=== PATIENT | female | born 1950 | race Caucasian/White ===

== ENCOUNTER → 2024-04-05 | Outpatient (CLI) | payer MEDICARE, SELFPAY ==
--- NOTE | 2024-04-05 | IMM_PTH ---
PATIENT: KEMI NOE LOC: [facility] U#:[id number] AGE/SX: 73/F ROOM: RE04/05/[address]: Dr. Ericka العلي MD : 1950 BED: DIS: 04/05/2024 SPEC #: [id number] RECD: 04/06/24 11:54 STATUS: SYEDA REQ #: [id number] PAWAN: 04/05/24 00:[address]: Ericka العلي DEPT: IMMUNOHISTOCHEMISTRY RECD BY: Rahat Lisa ENTERED: 04/06/24 11:55 SP TYPE: IMMUNO OTHR DR: DHRUV Rose Tissues: Right breast, NOS Procedures: P53 (initial) CALPONIN-1 (add) CK5-6 (add) CK8 (add) E-CAD (add) HER2 MIGUELITO (add) KI-67 (add) WV (add) FACTOR VIII (add) P40 (add) MOC-31 (add) ER (initial) PHYSICIAN & INSTITUTION [address] [address] SPECIMEN INFORMATION: Tissue Source: Right breast tissue Clinical Info: Right breast nodule Specimen Number: [id number] CPT code: 07795,01096m4,82542v5 METHODOLOGY: Deparaffinized sections of prefer/formalin-fixed tissue or PAP/DQ stained slides are incubated with monoclonal/polyclonal antibodies/oligonucleotide probes. Localization is made via biotin free immunoperoxidase method. Appropriate controls are performed and reacted as expected. Results on target cell population are indicated in the following table: RESULTS: ANTIBODY / CLONE RESULT P53 (DO-7) positive, missense type Ki-67 (30-9) positive, 35% CK8 (65msetT85) positive CK5-6 (D5 & 1684) negative Calponin-1 (EO251M) negative P40 (BC28) negative E-Cad (ECH-6) positive MOC-31 (4561) positive Factor VIII (R Ag) negative MORPHOMETRIC ANALYSIS ER (clone 6F11) >95%, strong intensity WV (clone 16/1E2) 45%, weak to moderate intensity Her-2Neu (clone CB11) 0 The prognostic test for HER2 is performed on formalin-fixed paraffin embedded tissue. A 3+ (positive) staining pattern is defined as intense, homogeneous, complete, circumferential membranous staining in >10% of contiguous tumor cells. A similar weak (2+) staining pattern is interpreted as equivocal. ELVIRA follow-up testing is recommended for all equivocal cases. Positivity/negativity for ER/WV is reported if > or < 1% of the tumor cells are immuno- reactive, respectively. The ASCO/CAP criteria is used for scoring. Reference: Journal of Clinical Oncology, 2013; 31:9700-3984 & 2010; 16:8048-8618. Ischemic time: Less than one hour. Duration of fixation: 12 Hrs; Sample Adequate: Yes. These assays have not been validated on decalcified tissues. Results should be interpreted with caution given the likelihood of false negativity on decalcified specimens or fixation greater than 72 hours. Alternative testing methods (FISH/dualISH for Her2; gene expression for ER) are recommended, if applicable. Please notify the laboratory if additional testing is required. These tests were developed and their performance characteristics determined by [facility]. They may not have been cleared or approved by the U.S. Food and Drug Administration. The FDA has determined that such clearance or approval is not necessary. The above immunohistochemical/dualISH markers are ordered and reviewed by the Pathologist. INTERPRETATION: Right breast tissue, 9o'clock, 12 cm from nipple, core biopsy: Invasive ductal carcinoma, provisional grade 1. Positive for estrogen receptors (favorable prognostic indicator). Positive for progesterone receptors (favorable prognostic indicator). Negative for overexpression of AWT1yxr. AM.mr 04/07/2024
--- NOTE | 2024-04-05 08:15 | BRBX_PTH ---
PATIENT: KEMI [facility]E [facility] U#:[id number] AGE/SX: 73/F ROOM: RE04/05/[address]: Dr. Ericka العلي MD : 1950 BED: DIS: 04/05/2024 SPEC #: [id number] RECD: 04/05/24 10:05 STATUS: SYEDA BIPIN #: [id number] PAWAN: 04/05/24 08:[address]: Ericka العلي DEPT: SURGICAL PATHOLOGY RECD BY: Ann-Marie Barrios ENTERED: 04/05/24 10:25 SP TYPE: BREAST BX OTHR DR: DHRUV Rose Tissues: Right breast, NOS Procedures: Surgery Specimen Level IV HEADER OPERATION: Right breast biopsy PRE-OP DIAGNOSIS: Right breast nodule biopsy TISSUE SUBMITTED: Right breast tissue, 9o'clock, 12cm from nipple Ischemic Time: 1 minute Fixation Time: 12 hours MICROSCOPIC DIAGNOSIS Right breast nodule, core biopsy: Invasive ductal carcinoma. See synoptic report below. 04/06/2024 COMMENT INVASIVE BREAST CANCER SUMMARY: Procedure: Needle core biopsy Specimen Laterality: Right breast Histologic type: Invasive ductal carcinoma Provisional Histologic grade:1/3 Tubule Differentiation Score: 2 Nuclear Pleomorphism Score: 2 Mitotic Rate Score: 1 Tumor Size ( greatest dimension): 11.5mm Ductal Carcinoma In situ: Not identified Angiolymphatic Invasion: Not identified Microcalcifications: Not identified Additional Findings: Fibrosis and mild chronic inflammation Breast Marker Study: [id number] ER: positive (95%, strong intensity) TN: positive (45% weak to moderate intensity) Her2: negative (0) Ki67:35% [id number]: Not applicable The above summary is in compliance with [employer] [place] [employer] (CAP) Cancer Protocols Checklist and [place] Joint Committee on Cancer (AJCC), Staging Manual, 8th Ed. Immunohistochemistry ([id number]) supports the above diagnosis. MICROSCOPIC DESCRIPTION Slides are reviewed. GROSS DESCRIPTION Received in fixative is one container labeled with the patient's name and designated Right breast nodule. The specimen consists of two cores of light ogden soft tissue. Each core has an average length of 1.5cm and a maximal diameter of 0.2cm. The specimen is submitted in its entirety in one cassette. 04/05/2024 TC:0 CPT:57677
== END | disposition home or self-care (01) ==
LOC: LABSPEC 10:15
PROVIDERS: PCP Physician Assistant; Referring Provider Surgery; Visit Provider Surgery
DX: C50.811 Malignant neoplasm of overlapping sites of right female breast (principal); Z17.0 Estrogen receptor positive status [ER+]
CPT/HCPCS: 81002; 88305; 88341; 88342

== ENCOUNTER → 2024-04-10 | Outpatient (CLI) | payer MEDICARE, OTHER, SELFPAY ==
--- NOTE | 2024-04-10 12:45 | MRI_ITS ---
STUDY: BILATERAL BREAST MR WITHOUT AND WITH CONTRAST REASON FOR EXAM: Female, 73 years old. Right breast lump. TECHNIQUE: Multi-sequence multi-echo imaging of both breasts was performed with a dedicated breast coil. T1-weighted and T2-weighted images were performed before the administration of contrast. T1-weighted images were also performed after the intravenous administration of 20 cc of Clariscan contrast. COMPARISON: Right breast ultrasound and dated May 01, 2024 and ultrasound-guided biopsy images dated April 05, 2024 FINDINGS: RIGHT BREAST: Scattered fibroglandular densities with minimal background enhancement. Large area of mass and non--mass enhancement in the outer aspect of the right breast measuring approximately 6.8 cm anterior to posterior, 2 cm medial to lateral and 5.8 cm in the craniocaudad dimension. Area of enhancement is highly suspicious. Tissue clip marker within the central portion of this enhancing region. This region of enhancement extends from the upper outer quadrant of the breast to the lower outer quadrant of the breast. LEFT BREAST: Scattered fibroglandular densities with minimal background enhancement. No abnormal enhancing masses or areas of non-mass enhancement in the left breast. Multiple small morphologically normal-appearing lymph nodes in the right axilla. No abnormality in the visualized regions of the chest or liver. MRI/Breast Bilateral W/O and W IMPRESSION: Large area of contrast enhancement in the right breast extending from the upper outer quadrant to the lower outer quadrant (multicentric involvement). Multiple small morphologically normal-appearing lymph nodes in the right axilla. Left breast shows no abnormality. CATEGORY: BIRADS Category 6: Known Biopsy-Proven Malignancy - Appropriate Action Should Be Taken. A letter regarding these results will be sent to the patient by the facility within 30 days. Electronically Signed: Rusty Ashby MD at 14:44 EST ,
[2024-04-10 13:33] LABS: CREATININE FINGERSTICK < 1.0 mg/dL (0.55-1.02); EGFR FINGERSTICK > 60.0000 mL/min (>60)
== END | disposition home or self-care (01) ==
PROVIDERS: PCP Physician Assistant; Referring Provider Surgery; Visit Provider Surgery
DX: N63.10 Unspecified lump in the right breast, unspecified quadrant (principal); R92.8 Other abnormal and inconclusive findings on diagnostic imaging of breast
CPT/HCPCS: 77049; A9575; A4216; C8908

== ENCOUNTER 2024-06-01 12:25 | Observation (INO) | payer MEDICARE, OTHER, SELFPAY ==
--- NOTE | 2024-05-26 11:51 | EKG12_ITS ---
Test Reason : PRE OP Blood Pressure : */* mmHG Vent. Rate : 66 BPM Atrial Rate : 66 BPM P-R Int : 202 ms QRS Dur : 90 ms QT Int : 392 ms P-R-T Axes : 72 15 67 degrees QTcB Int : 410 ms Normal sinus rhythm Low voltage QRS Cannot rule out Anterior infarct , age undetermined Abnormal ECG No previous ECGs available Confirmed by MATTHEW GODINEZ, VIJAY ([id number]), image editor CLEO FU ([id number]) on 05/30/2024 2:08:25 PM Referred By: Ericka العلي Confirmed By: VIJAY CASTRO MD
[2024-05-26 13:05] LABS: Hemoglobin 14.6 g/dL (12.0-15.0); Mean Corp Hgb Conc 33.2 g/dL (32-36); Mean Corpuscular Hgb 32.3 pg (27.0-32.0); Mean Corpuscular Volume 97.3 fL (81-99); Mean Platelet Vol. 9.7 fl (6.2-12.0); Platelet Count 240 K/mm3 (150-450); RBC Distribution Width CV 13.2 % (11.6-14.6); RBC Distribution Width SD 47.3 fl (35.1-43.9); Red Blood Count 4.52 M/mm3 (4.2-5.4); White Blood Count 5.3 K/mm3 (4.4-11.0)
[2024-05-26 13:46] LABS: Anion Gap 3 (5-15); BUN 14 mg/dL (7-18); BUN/Creat Ratio 19.9 RATIO (10-20); Calcium,Total 9.7 mg/dL (8.5-10.1); Chloride 108 mmol/L (98-107); EST Glomerular Filtration Rate 86 mL/min (>60); Est Glom Filt Rate - Afr Amer 104 mL/min (>60); Glucose 85 mg/dL (74-106); Potassium 4.3 mmol/L (3.5-5.1); Sodium Level 139 mmol/L (136-145); Thyroid Stim Hormone (TSH) 0.437 uIU/mL (0.358-3.740)
--- NOTE | 2024-05-26 17:45 | PAT.ANESEVAL ---
Pre-Assessment Diagnosis/Proposed Procedure Planned Operative Procedure(s): RIGHT MASTECTOMY WITH SENTINELLYMPH NODE BIOPSY BLUE DYE AND RADIOTRACER POSS AXILLARY DISSECTION Anesthesia History Anesthesia History - gastroenterologist: Anesthesia History - gastroenterologist Hx Hospitalization No 05/24/24 09:09 Any Problems With Anesthesia Yes: SLOW TO AWAKEN 05/24/24 09:09 Cholinesterase deficiency No 05/24/24 09:09 You/Your Family Experience No 05/24/24 09:09 fever (hyperthermia) with Relationship Recent Exposure to Contagious Disease Does patient have nerve No 05/24/24 09:09 stimulator Patient instructed to have device shut off --Does patient have Pacemaker or ICD? When Was Last Pacemaker Check QUESTION #4 FULL TEXT: You/Your Family Experience fever (hyperthermia) with Anesthesia Last Oral Intake Last Oral intake: Last Oral Intake NPO since Meds taken in AM with sips of water? Meds patient instructed to take am of surgery PONV PONV - gastroenterologist: PONV - gastroenterologist Female Yes 05/24/24 09:09 HX of Motion Sickness No 05/24/24 09:09 HX of N/V After Surgery No 05/24/24 09:09 Non-Smoker Yes 05/24/24 09:09 Duration of Surgery greater Yes 05/24/24 09:09 than 60 minutes Number of Risk Factors 3 05/24/24 09:09 PONV Score Moderate Risk 05/24/24 09:09 Height & Weight Height & Weight: Anesthesia: Height & Weight Height 5 ft 3 in 04/21/24 11:12 Respiratory Assessment Respiratory Assessment - gastroenterologist: Respiratory Tract Infection Hx - gastroenterologist Hx Respiratory Tract Infection Yes: THROAT CONGESTION/ON 05/24/24 09:09 ANTIBIOTIC/IMPROVING STOP Sleep Apnea STOP Sleep Apnea - gastroenterologist: STOP Sleep Apnea - gastroenterologist Hx Hypertension No 05/24/24 09:09 Hx Sleep Apnea Yes 05/24/24 09:09 CPAP No 05/24/24 09:09 BIPAP Yes: NONCOMPLIANT 05/24/24 09:09 Do you snore loudly (louder than talking or can be heard Do you often feel tired/ fatigued/ sleepy during daytime? Has anyone observed you stop breathing during sleep? STOP Results Positive 05/24/24 09:09 QUESTION #5 FULL TEXT : Do you snore loudly (louder than talking or can be heard through closed doors)? 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 Specify any problems Hx of Preganancy in last 3 No 05/24/24 09:09 Months Nurse Filling Out Transfusion DSCHRIBER 05/24/24 09:09 & Questions: Date: 05/24/24 05/24/24 09:09 Time: 09:12 05/24/24 09:09 Patient unable to answer at this time (ie. confused, unrespo /Reproduction History /Reproductive History - gastroenterologist: /Reproductive Hx- gastroenterologist Hx Now No 05/24/24 09:09 Gestational Age (in weeks): EDC: Hx Hx Para Hx Section SAB No 05/24/24 09:09 [facility] Medical History (Updated 05/24/24 @ 09:22 by Cris Cano) Wears glasses Post-menopausal Cancer Depression Anxiety Marijuana use Hypoglycemia Thyroid disease Arthritis High cholesterol Scoliosis Narcolepsy Injury of head and neck History of IBS Heartburn Non-smoker BiPAP (biphasic positive airway pressure) dependence COPD (chronic obstructive pulmonary disease) Asthma History of pain when walking History of echocardiogram History of stress test History of irregular heartbeat Hx of sepsis Abnormal ultrasound of breast Abnormal mammogram Lump of right breast Home Medications ?Medication ?Instructions ?Recorded ?Last Taken ?Type atenolol 50 mg tablet 50 mg PO QDAY 04/05/24 Unknown History bupropion HCl 300 mg 24 hr tablet, 300 mg PO QDAY 04/05/24 Unknown History extended release fluticasone furoate 100 1 inh inhalation QDAY 04/05/24 Unknown History mcg/actuation blister powder for inhalation (Arnuity Ellipta) gabapentin 300 mg capsule 300 mg PO TID PRN pain 04/05/24 Unknown History levothyroxine 112 mcg tablet 112 mcg PO QDAY 04/05/24 Unknown History modafinil 200 mg tablet 200 mg PO QDAY 04/05/24 Unknown History salmeterol 50 mcg/dose blister 1 inh inhalation BID 04/21/24 Unknown History powder for inhalation (Serevent Diskus) THC 10 mg PO DAILY 05/24/24 Unknown History fluticasone propionate 50 1 spray intranasal DAILY PRN nasal 05/24/24 Unknown History mcg/actuation nasal congestion spray,suspension levalbuterol HCl 1.25 mg/0.5 mL 1.25 mg inhalation Q4H PRN 05/24/24 Unknown History solution for nebulization shortness of breath or wheezing levalbuterol tartrate 45 1 inh inhalation Q4H PRN shortness 05/24/24 Unknown History mcg/actuation aerosol inhaler of breath or wheezing Allergy/AdvReac Type Severity Reaction Status Date / Time Cephalosporins Allergy Severe Rash Verified 05/24/24 09:04 Penicillins Allergy Severe Anaphylaxis Verified 05/24/24 09:04 pseudoephedrine Allergy Mild Laryngospas Verified 05/24/24 09:04 ms Family History Grandmother Breast cancer Sister Breast cancer Surgical History (Updated 05/24/24 @ 09:22 by Cris Cano) History of ERCP Hx of colonoscopy History of esophagogastroduodenoscopy (EGD) Hx of tonsillectomy Hx of tubal ligation History of cholecystectomy Social History Smoking Status: Never smoker alcohol intake: never substance use type: does not use Audit: Pertinent Findings Pertinent Findings EKG Perinent findings: May 26, 2024. Normal sinus rhythm. Cannot rule out anterior infarct. No previous EKGs to compare. Recommendation Anesthesia Recommendation Anesthesia recommendation: F/U recommended (EKG states cannot rule out anterior infarct. Patient did have some cardiac testing 10 to 15 years ago. Are we able to obtain any of that testing or a previous EKG?)
--- NOTE | 2024-05-27 11:41 | PAT.ANE_ITS ---
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 When Was Last Pacemaker Check QUESTION #4 FULL TEXT: You/Your Family Experience fever (hyperthermia) with Anesthesia Last Oral Intake Last Oral intake: Last Oral Intake NPO since Meds taken in AM with sips of water? Meds patient instructed to take am of surgery PONV PONV - community association manager: PONV - community association manager Female Yes 05/24/24 09:09 HX of Motion Sickness No 05/24/24 09:09 HX of N/V After Surgery No 05/24/24 09:09 Non-Smoker Yes 05/24/24 09:09 Duration of Surgery greater Yes 05/24/24 09:09 than 60 minutes Number of Risk Factors 3 05/24/24 09:09 PONV Score Moderate Risk 05/24/24 09:09 Height & Weight Height & Weight: Anesthesia: Height & Weight Height 5 ft 3 in 04/21/24 11:12 Respiratory Assessment Respiratory Assessment - community association manager: Respiratory Tract Infection Hx - community association manager Hx Respiratory Tract Infection Yes: THROAT CONGESTION/ON 05/24/24 09:09 ANTIBIOTIC/IMPROVING STOP Sleep Apnea STOP Sleep Apnea - community association manager: STOP Sleep Apnea - community association manager Hx Hypertension No 05/24/24 09:09 Hx Sleep Apnea Yes 05/24/24 09:09 CPAP No 05/24/24 09:09 BIPAP Yes: NONCOMPLIANT 05/24/24 09:09 Do you snore loudly (louder than talking or can be heard Do you often feel tired/ fatigued/ sleepy during daytime? Has anyone observed you stop breathing during sleep? STOP Results Positive 05/24/24 09:09 QUESTION #5 FULL TEXT : Do you snore loudly (louder than talking or can be heard through closed doors)? 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 Specify any problems Hx of Preganancy in last 3 No 05/24/24 09:09 Months Nurse Filling Out Transfusion DSCHRIBER 05/24/24 09:09 & Questions: Date: 05/24/24 05/24/24 09:09 Time: 09:12 05/24/24 09:09 Patient unable to answer at this time (ie. confused, unrespo /Reproduction History /Reproductive History - community association manager: /Reproductive Hx- community association manager Hx Now No 05/24/24 09:09 Gestational Age (in weeks): EDC: Hx Hx Para Hx Section SAB No 05/24/24 09:09 [facility] Medical History (Updated 05/24/24 @ 09:22 by Cris Cano) Wears glasses Post-menopausal Cancer Depression Anxiety Marijuana use Hypoglycemia Thyroid disease Arthritis High cholesterol Scoliosis Narcolepsy Injury of head and neck History of IBS Heartburn Non-smoker BiPAP (biphasic positive airway pressure) dependence COPD (chronic obstructive pulmonary disease) Asthma History of pain when walking History of echocardiogram History of stress test History of irregular heartbeat Hx of sepsis Abnormal ultrasound of breast Abnormal mammogram Lump of right breast Home Medications ?Medication ?Instructions ?Recorded ?Last Taken ?Type atenolol 50 mg tablet 50 mg PO QDAY 04/05/24 Unknown History bupropion HCl 300 mg 24 hr tablet, 300 mg PO QDAY 04/05/24 Unknown History extended release fluticasone furoate 100 1 inh inhalation QDAY 04/05/24 Unknown History mcg/actuation blister powder for inhalation (Arnuity Ellipta) gabapentin 300 mg capsule 300 mg PO TID PRN pain 04/05/24 Unknown History levothyroxine 112 mcg tablet 112 mcg PO QDAY 04/05/24 Unknown History modafinil 200 mg tablet 200 mg PO QDAY 04/05/24 Unknown History salmeterol 50 mcg/dose blister 1 inh inhalation BID 04/21/24 Unknown History powder for inhalation (Serevent Diskus) THC 10 mg PO DAILY 05/24/24 Unknown History fluticasone propionate 50 1 spray intranasal DAILY PRN nasal 05/24/24 Unknown History mcg/actuation nasal congestion spray,suspension levalbuterol HCl 1.25 mg/0.5 mL 1.25 mg inhalation Q4H PRN 05/24/24 Unknown History solution for nebulization shortness of breath or wheezing levalbuterol tartrate 45 1 inh inhalation Q4H PRN shortness 05/24/24 Unknown History mcg/actuation aerosol inhaler of breath or wheezing Allergy/AdvReac Type Severity Reaction Status Date / Time Cephalosporins Allergy Severe Rash Verified 05/24/24 09:04 Penicillins Allergy Severe Anaphylaxis Verified 05/24/24 09:04 pseudoephedrine Allergy Mild Laryngospas Verified 05/24/24 09:04 ms Family History Grandmother Breast cancer Sister Breast cancer Surgical History (Updated 05/24/24 @ 09:22 by Cris Cano) History of ERCP Hx of colonoscopy History of esophagogastroduodenoscopy (EGD) Hx of tonsillectomy Hx of tubal ligation History of cholecystectomy Social History Smoking Status: Never smoker alcohol intake: never substance use type: does not use Audit: Pertinent Findings HISTORY of Pertinent Findings History of Pertinent Findings: EKG Pertinent Findings EKG Perinent findings May 26, 2024. Normal 05/26/24 17:55 sinus rhythm. Cannot rule out anterior infarct. No previous EKGs to compare. Pertinent Findings EKG Perinent findings: EKG of 05/26/24 NSR with possible anterior infarct. No symptoms documented in the records. Recommendation Anesthesia Recommendation Anesthesia recommendation: OPTIMIZED for anesthesia
[2024-06-01] VITALS (14 sets, daily range): BP systolic 101–137; BP diastolic 52–70; PULSE 60–73; RESP 16–20; TEMP 36.1–36.4; O2SAT 93–100; BMI 34.7
--- NOTE | 2024-06-01 11:02 | NM_ITS ---
EXAM: LYMPH NODE INJECTION ONLY CLINICAL HISTORY: Right breast cancer. COMPARISON: None. TECHNIQUE: 604 uCi of Lymphoseek was injected subcutaneously in the right supra areolar region. FINDINGS: 604 uCi of Lymphoseek was injected subcutaneously in the right supra areolar region. NM/Lymph Node Injection Only IMPRESSION: 604 uCi of Lymphoseek was injected subcutaneously in the right supra areolar re gion. Reading Location: [facility]
[2024-06-01] MEDS: 0.9% Normal Saline (1000mL) 1,000 ML 15 ML IV (11:35)
--- NOTE | 2024-06-01 11:56 | HP.PCM.SX_ITS ---
HPI - General General Date of Service: 06/01/24 HPI Narrative KEMI NOE, is a 73 F who presents for a right mastectomy due to invasive ductal carcinoma?multicentric involvement. Patient did recover from COVID recently. Plan for mastectomy with sentinel lymph node biopsy, injection of Lymphoseek and blue dye possible axillary lymph node dissection. Patient has also seen Dr. Fuentes and if she needs to have an axillary lymph node dissection with plan to have procedure to help prevent lymphedema. office visit 04/13/24 HPI HPI: 73-year-old female presents to discuss pathology as well as MRI. Patient's right breast biopsies showed invasive ductal carcinoma ER/LA positive, HER2/joan negative. MRI showed a large area of contrast enhancement in the right breast extending from the upper outer quadrant to the lower outer quadrant (multicentric involvement). Multiple small morphologically normal-appearing lymph nodes in the right axilla. Patient is here to discuss surgical options for breast cancer. [facility] Medical History (Updated 05/24/24 @ 09:22 by Cris Cano) Wears glasses Post-menopausal Cancer Depression Anxiety Marijuana use Hypoglycemia Thyroid disease Arthritis High cholesterol Scoliosis Narcolepsy Injury of head and neck History of IBS Heartburn Non-smoker BiPAP (biphasic positive airway pressure) dependence COPD (chronic obstructive pulmonary disease) Asthma History of pain when walking History of echocardiogram History of stress test History of irregular heartbeat Hx of sepsis Abnormal ultrasound of breast Abnormal mammogram Lump of right breast Home Medications ?Medication ?Instructions ?Recorded ?Last Taken ?Type atenolol 50 mg tablet 50 mg PO QDAY 04/05/24 06/01/24 History bupropion HCl 300 mg 24 hr tablet, 300 mg PO QDAY 04/05/24 06/01/24 History extended release fluticasone furoate 100 1 inh inhalation QDAY 04/05/24 06/01/24 History mcg/actuation blister powder for inhalation (Arnuity Ellipta) gabapentin 300 mg capsule 300 mg PO TID PRN pain 04/05/24 05/31/24 History levothyroxine 112 mcg tablet 112 mcg PO QDAY 04/05/24 06/01/24 History modafinil 200 mg tablet 200 mg PO QDAY 04/05/24 05/31/24 History salmeterol 50 mcg/dose blister 1 inh inhalation BID 04/21/24 05/31/24 History powder for inhalation (Serevent Diskus) THC 10 mg PO DAILY 05/24/24 Unknown History fluticasone propionate 50 1 spray intranasal DAILY PRN nasal 05/24/24 06/01/24 History mcg/actuation nasal congestion spray,suspension levalbuterol HCl 1.25 mg/0.5 mL 1.25 mg inhalation Q4H PRN 05/24/24 06/01/24 History solution for nebulization shortness of breath or wheezing levalbuterol tartrate 45 1 inh inhalation Q4H PRN shortness 05/24/24 06/01/24 History mcg/actuation aerosol inhaler of breath or wheezing Allergy/AdvReac Type Severity Reaction Status Date / Time Cephalosporins Allergy Severe Rash Verified 06/01/24 11:22 Penicillins Allergy Severe Anaphylaxis Verified 06/01/24 11:22 pseudoephedrine Allergy Mild Laryngospas Verified 06/01/24 11:22 ms Family History Grandmother Breast cancer Sister Breast cancer Surgical History (Updated 05/24/24 @ 09:22 by Cris Cano) History of ERCP Hx of colonoscopy History of esophagogastroduodenoscopy (EGD) Hx of tonsillectomy Hx of tubal ligation History of cholecystectomy Social History Smoking Status: Never smoker alcohol intake: never substance use type: does not use Vital Signs Vital Signs Vital Signs: 06/01/24 11:31 06/01/24 11:31 Temperature 97.5 F L Temperature Source Temporal Pulse Rate 73 Respiratory Rate 20 H Respiratory Pattern Normal Blood Pressure 116/59 L Blood Pressure Mean 78 Blood Pressure Source Monitor Blood Pressure Position Semi-Fowlers Blood Pressure Location Right Arm Pulse Ox 98 Oxygen Delivery Method Room Air Weight Weight: 196 lb 3.382 oz Body Mass Index (BMI) 34.7 Physical Exam Narrative Right lateral breast mass at about 9/10:00, tender in this area as well. Const alert, oriented x3 and no apparent distress HEENT normocephalic and head/scalp atraumatic Resp normal respiratory effort Cardio regular rate GI soft to palpation; Negative for non-distended Extremity no clubbing, cyanosis or edema Skin no rashes or lesions noted Neuro CN's II-XII intact bilaterally Psych mental status grossly normal Results Lab / Micro Data 05/26/24 12:26 05/26/24 12:26 Assessment & Plan Assessment/Plan (1) Invasive ductal carcinoma of right breast: PLAN: Plan I have given the patient options for initial surgical treatment. Options are the following: mastectomy vs. mastectomy followed by immediate reconstruction. I have described the procedures to the patient. I have described the advantages and disadvantages of the options, but I have told the patient that among the options, the survival rate for breast cancer is the same. I have told the patient that with all the surgeries that a sentinel lymph node biopsy is required. I have described the procedure of sentinel lymph node biopsy to the patient. I have told the patient that if the biopsy is positive for metastatic disease, then a full axillary lymph node dissection is required. I have told the patient that adjuvant chemotherapy will be required should the lymph nodes reveal metastatic disease. Also, a full lymph node dissection will increase the risk for lymphedema, especially if there are 4 or more lymph nodes positive for metastatic disease and radiation to the axilla is also required. I have told the patient the risks of surgery, including but not limited to: infection, bleeding, scar tissue, seroma and persistent seroma, lymph leak, injury to any blood vessels, injury to any nerves (particularly the long thoracic, the thoracodorsal, and the second intercostal brachial and the resultant sequelae), lymphedema, cosmetic deformity, dysesthesias, wound infections, further surgery (especially if margins are not clear), complications of anesthesia, etc. the patient understands. Patient is agreeable to a right mastectomy, sentinel lymph node biopsy with Lymphoseek and blue dye, possible axillary node dissection. Would only plan for No dissection if 3 or more nodes are positive otherwise patient be okay with getting radiation, as she would like to prevent lymphedema. Dr. Fuentes will be available if And axillary lymph node dissection is needed to help prevent lymphedema. I have answered all the patient?s questions at this point to her satisfaction and she has no further questions. Ericka العلي M.D. Pager: [phone] [facility] [address] [place] [address], [address] [place] [address] Office: [phone]
[2024-06-01] MEDS: Methylene Blue 1% 100 MG/10 ML VIAL (12:20)
[2024-06-01] MEDS: 0.9% Saline Lock 10 ML Syringe IV ×2 (12:20→20:34)
--- NOTE | 2024-06-01 12:22 | PCM.HP.STD ---
HPI - General HPI Narrative Current Encounter (DATE OF SURGERY H&P UPDATE): I saw and examined the patient this morning in pre-operative holding. We discussed risks and benefits of today's surgery and they would like to proceed. NO CHANGE in health history since last seen and evaluated (EXCEPT had COVID so surgery was rescheduled, but doing well now). Ready to proceed with surgery. KEMI NGUYỄN, is a 73 F who presents with a right breast cancer. Here for mastectomy (RIGHT) with lymph node sampling (Dr. العلي) and possible axillary dissection. PSU to be available for possible immediate lymphatic reconstruction (LYMPHA) as needed. [facility] Medical History (Updated 05/24/24 @ 09:22 by Cris Cano) Wears glasses Post-menopausal Cancer Depression Anxiety Marijuana use Hypoglycemia Thyroid disease Arthritis High cholesterol Scoliosis Narcolepsy Injury of head and neck History of IBS Heartburn Non-smoker BiPAP (biphasic positive airway pressure) dependence COPD (chronic obstructive pulmonary disease) Asthma History of pain when walking History of echocardiogram History of stress test History of irregular heartbeat Hx of sepsis Abnormal ultrasound of breast Abnormal mammogram Lump of right breast Home Medications ?Medication ?Instructions ?Recorded ?Last Taken ?Type atenolol 50 mg tablet 50 mg PO QDAY 04/05/24 06/01/24 History bupropion HCl 300 mg 24 hr tablet, 300 mg PO QDAY 04/05/24 06/01/24 History extended release fluticasone furoate 100 1 inh inhalation QDAY 04/05/24 06/01/24 History mcg/actuation blister powder for inhalation (Arnuity Ellipta) gabapentin 300 mg capsule 300 mg PO TID PRN pain 04/05/24 05/31/24 History levothyroxine 112 mcg tablet 112 mcg PO QDAY 04/05/24 06/01/24 History modafinil 200 mg tablet 200 mg PO QDAY 04/05/24 05/31/24 History salmeterol 50 mcg/dose blister 1 inh inhalation BID 04/21/24 05/31/24 History powder for inhalation (Serevent Diskus) THC 10 mg PO DAILY 05/24/24 Unknown History fluticasone propionate 50 1 spray intranasal DAILY PRN nasal 05/24/24 06/01/24 History mcg/actuation nasal congestion spray,suspension levalbuterol HCl 1.25 mg/0.5 mL 1.25 mg inhalation Q4H PRN 05/24/24 06/01/24 History solution for nebulization shortness of breath or wheezing levalbuterol tartrate 45 1 inh inhalation Q4H PRN shortness 05/24/24 06/01/24 History mcg/actuation aerosol inhaler of breath or wheezing Allergy/AdvReac Type Severity Reaction Status Date / Time Cephalosporins Allergy Severe Rash Verified 06/01/24 11:22 Penicillins Allergy Severe Anaphylaxis Verified 06/01/24 11:22 pseudoephedrine Allergy Mild Laryngospas Verified 06/01/24 11:22 ms Family History Grandmother Breast cancer Sister Breast cancer Surgical History (Updated 05/24/24 @ 09:22 by Cris Cano) History of ERCP Hx of colonoscopy History of esophagogastroduodenoscopy (EGD) Hx of tonsillectomy Hx of tubal ligation History of cholecystectomy Social History Smoking Status: Never smoker alcohol intake: never substance use type: does not use Vital Signs Vital Signs Vital Signs: 06/01/24 11:31 06/01/24 11:31 Temperature 97.5 F L Temperature Source Temporal Pulse Rate 73 Respiratory Rate 20 H Respiratory Pattern Normal Blood Pressure 116/59 L Blood Pressure Mean 78 Blood Pressure Source Monitor Blood Pressure Position Semi-Fowlers Blood Pressure Location Right Arm Pulse Ox 98 Oxygen Delivery Method Room Air Weight Weight: 196 lb 3.382 oz Body Mass Index (BMI) 34.7 Physical Exam Narrative Right lateral breast mass at about 9/10:00, tender in this area as well. Const alert, oriented x3 and no apparent distress HEENT normocephalic and head/scalp atraumatic Resp normal respiratory effort Cardio regular rate GI soft to palpation; Negative for non-distended Extremity no clubbing, cyanosis or edema Skin no rashes or lesions noted Neuro CN's II-XII intact bilaterally Psych mental status grossly normal Results Lab / Micro Data 05/26/24 12:26 05/26/24 12:26 Assessment & Plan Assessment/Plan (1) Invasive ductal carcinoma of right breast: PLAN: Plan This is a 73year-old woman with right breast cancer who is not interested in reconstruction or any symmetry procedures on the contralateral side at this time. She understands that breast reconstruction is elective, and also that is an option that is covered by insurance. She has been well-educated on the topic and would like to wear a prosthesis bra. We had an extensive discussion about the risks of developing lymphedema in the months following the lymph node sampling portion of her future surgery.? We discussed the varying rates of lymphedema after sentinel node biopsy and after axillary lymph node dissection, which are about 6-13 % and 13-65%, respectively.? We discussed that studies have shown patients who had immediate lymphatic reconstruction following axillary dissection (known as LYMPHA) have subsequent lymphedema rates as low as 4% (with lymphedema rates around 30% lymphedema in control groups).? We discussed conflicting data about immediate lymphatic reconstruction and how more studies need to be performed; however, I also offered her my opinion that I believe it is oncologically safe and effective.? Immediate lymphatic reconstruction appears to be oncologically safe, with studies demonstrating metastatic disease at 2 years to be similar between reconstructed and non-reconstructed cohorts (about 12% rate of metastatic disease in both). (Xavier Torres 2021 oncologic safety). This was discussed with her and her and she is interested in lymphatic reconstruction. Mrs. Nguyễn has considered the options, and would like to defer breast reconstruction, but is interested in immediate lymphatic reconstruction with lymphovenous anastomoses if a full axillary dissection is performed and if this can be accomplished. I told her there are no guarantees that I can technically accomplish this task, as there are multiple variables including anatomic variables that could limit the possibility of this procedure being completed. She also understands that there are procedural options subsequently if she develops lymphedema later, including lymphovenous anastomoses in the forearm. She understands the risk of increased operative time and the risks of clotting (Caprini score of 7 (increased for age and history of malignancy)). I will plan to be available for lymphovenous anastomoses attempt if an axillary dissection is indicated. The surgery is scheduled for 09 May 2024, and [facility] will plan to be available. This visit lasted for more than 60 minutes and greater than 50% of the visit was involved in the discussion of the options for treatment. INTERVAL H&P PLAN, DATE OF SURGERY: We will proceed with surgery today.
--- NOTE | 2024-06-01 12:30 | LYM_PTH ---
PATIENT: KEMI NOE LOC: MS3 U#:[id number] AGE/SX: 73/F ROOM: [facility] RE06/01/[address]: Dr. Ericka العلي MD : 1950 BED: 1 DIS: 06/02/2024 SPEC #: [id number] RECD: 06/01/24 14:08 STATUS: SYEDA REQ #: [id number] PAWAN: 06/01/24 12:[address]: Ericka العلي DEPT: SURGICAL PATHOLOGY RECD BY: Rhaat Lisa ENTERED: 06/01/24 14:09 SP TYPE: LYM NODES OTHR DR: DHRUV Rose Tissues: A - Lymph node, NOS B - Lymph node, NOS C - Right breast, NOS D - Axillary tail of breast Procedures: Frozen Section (charge) Frozen Section Add'l ([facility]) Surgery Specimen Level IV Surgery Specimen Level V HEADER OPERATION: Right mastectomy with sentinel lymph node biopsy, blue dye and radiotracer PRE-OP DIAGNOSIS: Invasive ductal carcinoma of right breast TISSUE SUBMITTED: A- Right breast: [place] lymph node, B- Right additional sentinel lymph node, C- Right breast mastectomy *short stitch- superior*, D- Right axillary dissection contents FROZEN SECTION DIAGNOSIS A. Right sentinel lymph node, biopsy: One lymph node, positive for macrometastatic carcinoma. B. Right additional sentinel lymph node, biopsy: One lymph node, positive for macrometastatic carcinoma. 06/01/2024 MICROSCOPIC DIAGNOSIS A. Right sentinel lymph node, biopsy: One lymph node, positive for macrometastatic carcinoma. See comment. B. Right additional sentinel lymph node, biopsy: One lymph node, positive for macrometastatic carcinoma. See comment. C. Right breast, mastectomy: Invasive ductal carcinoma x2. See cancer summary in the comment section. D. Right axillary contents, regional dissection: Seven out of twelve lymph nodes involved by macrometastatic carcinoma. See comment. 06/07/2024 COMMENT A. More than 95% of the lymph node is replaced by the tumor. B. More than 95% of the lymph node is replaced by the tumor. Extranodal extension is noted measuring 0.9 x 0.8cm. C. INVASIVE BREAST CANCER SUMMARY: Procedure - Total mastectomy Specimen: Total breast including nipple and skin Laterality -Right Tumor: Site - Outer quadrant Size - Larger tumor measures 4.5 x 4 x 2cm and second tumor measures 4 x 3 x 3cm Histologic type - invasive ductal carcinoma, no special type Focality - Two foci of carcinoma. Histologic Grade (Brendan grade): Both tumors show similar morphologic features. Glandular/tubular differentiation - score 2 Nuclear pleomorphism - score 3 Mitotic count - score1 Overall grade - 2 (score of 6) Ductal carcinoma in situ: Present Size- (External DCIS): Ductal carcinoma in situ comprised ~5% of the tumor volume. Architectural patterns - Solid and cribriform Nuclear grade - grade 3 (high) Necrosis - Present, central (expansive comedo necrosis) Number of blocks with DCIS- 4 Number of blocks examined - 16 Lobular carcinoma in situ (LCIS) - not identified. Tumor extension: Skin - Tumor does not involve skin Nipple - Ductal carcinoma does not involve nipple epidermis Skeletal muscle - No skeletal muscle is noted Margins: Margins are free of invasive carcinoma and ductal carcinoma in situ. Ductal in situ and invasive carcinoma are 1cm away from the closest inferior margin. Lymph nodes: Number of sentinel lymph nodes examined - 2 Total number of lymph nodes examined (sentinel and nonsentinel) - 14 Number of lymph nodes with macrometastases - 9 Number of lymph nodes with micrometastases - 0 Number of lymph nodes with isolated tumor cells - 0 Size of largest metastatic deposit - largest focus of metastatic carcinoma measures 2cm in greatest dimension (specimen B, largest lymph node, almost completely replaced by the tumor). Extranodal extension - Present, 0.9 x 0.8cm, measured microscopically Treatment effect: no known presurgical therapy. Lymphvascular invasion - Present in lymphatics adjacent to the lymph nodes Dermal lymphvascular invasion - Not identified Distant metastasis - Not appliable Additional pathologic findings - Intraductal hyperplasia with atypia. Ancillary studies - previously performed on section of tumor ([id number]) ER - positive (>95%, strong intensity) OR - positive (45%, weak to moderate intensity) Her2 joan - negative (0) Her2 by dual ELVIRA - not applicable Ki67 - 35% Microcalcifications - Not identified PATHOLOGIC STAGE: pT2(m) pN2a pMx The above summary is in compliance with [employer] (CAP) Cancer Protocols Checklist and [place] Joint Committee on Cancer (AJCC), Staging Manual, 8th Ed. D. The largest focus of metastases measures 1cm in greatest dimension. A few of the lymph nodes also show extranodal extension. Please make reference to previous specimen [id number] right breast nodule, core biopsy with diagnosis of invasive ductal carcinoma. This case has been reviewed in consultation with Dr. Velasquez who concurs with the above diagnosis. IDC:[id number] MICROSCOPIC DESCRIPTION Slides are reviewed. GROSS DESCRIPTION A. Received fresh for frozen section diagnosis labeled with the patient's name is a specimen designated [place] lymph node. The specimen consists of a ogden-yellow fibroadipose tissue containing a nodule measuring 2 x 1.5 x 0.5cm. The specimen is bisected and submitted entirely for frozen section diagnosis in one cassette. PETE.mr 06/03/2024 B. Received fresh for frozen section diagnosis labeled with the patient's name is a specimen designated Right breast sentinel lymph node. The specimen consists of a piece of adipose tissue measuring 2 x 1.5 x 1cm. One lymph node is identified, and it is serially sectioned and submitted entirely for frozen section diagnosis in two cassettes. [email or web address].mr 06/02/2024 C. Received in fixative is one container labeled with the patient's name and designated Right breast. The specimen consists of a mastectomy specimen consisting of breast tissue measuring 27 x 24 x 26cm. Overlying skin measures 26 x 19cm and the nipple measures 0.7cm in greatest dimension. The specimen is inked as follows: posterior - black, superior - blue, inferior - green, medial - red and lateral - orange. Also present in the container is a piece of adipose tissue measuring 4 x 2 x 0.5cm. Sections reveal two ogden indurated tumor masses in the outer quadrant measuring 4 x 3 x 3cm and 4.5 x 4 x 2cm. The second mass is 1cm away from the closest inferior margin. The tumors are about distance of 3cm from one another. The second tumor mass described shows a metallic clip. Section of the rest of the specimen reveal ogden-yellow adipose cut surfaces mixed with ogden-white fibrous areas. Clinical Data Coordinator sections are submitted in sixteen cassettes as follows: 1- nipple, entirely submitted, 2- perpendicular medial, lateral margins, 3- perpendicular superior, posterior margin and skin, 4-6- tumor described first, 7-9- tumor described second with metallic clip, 10&11- tumor with closest inferior margin, 12&13- veterans contact representative sections adjacent to the tumor, 14-16- veterans contact representative sections away from the tumor. Sections are submitted after additional fixation. 06/02/2024 D. Received in fixative is one container labeled with the patient's name and designated Right axillary dissection contents. The specimen consists of multiple pieces of yellow adipose tissue measuring in aggregate 7 x 6 x 2cm. Multiple nodules consistent with lymph nodes are identified. Largest lymph node measures 1.5cm in greatest dimension. Lymph nodes are submitted in entirety. Clinical Data Coordinator sections are submitted in five cassettes as follows: 1&2- each cassette containing multiple breast lymph nodes, 3-5- each cassette containing one bisected lymph node. 06/02/2024 TC:0 CPT:[id number]
--- NOTE | 2024-06-01 12:33 | PCM.PRE.AN2 ---
ASA Classification* ASA Classification ASA Classification: 3 Assessment & Plan Anesthesia* Anesthesia Assessment Anesthesia Assessment: Discussed sedation and/or anesthesia options, risks, benefits, and alternatives with patient/parents/legal guardian/POA. Questions invited. The patient/parents/legal guardian/POA seems to understand and agrees to proceed with anesthesia plan. Reviewed the physical assessment, medical history, allergy history and patient home medications list prior to surgery/procedure/anesthetic and documented any changes. Performed airway and anesthesia risk assessments. Anesthesia Type Anesthesia Type: General Anesthesia Focused Assessment* Temperature: 97.5 F Pulse Rate: 73 Blood Pressure: 116/59 Respiratory Rate: 20 Pulse Ox: 98 Oxygen Delivery Method: Room Air Airway Assessment Mouth opens: >3 cm Mallampati Score: II Teeth Condition: Dentures Focused Labs Anesthesia Preop lab: CBC WBC 5.3 K/mm3 (4.4-11.0) 05/26/24 12:26 RBC 4.52 M/mm3 (4.2-5.4) 05/26/24 12:26 Hgb 14.6 g/dL (12.0-15.0) 05/26/24 12:26 Hct 44.0 % (37-47) 05/26/24 12:26 Plt Count 240 K/mm3 (150-450) 05/26/24 12:26 CHEMISTRY Potassium 4.3 mmol/L (3.5-5.1) 05/26/24 12:26 Sodium 139 mmol/L (136-145) 05/26/24 12:26 BUN 14 mg/dL (7-18) 05/26/24 12:26 Creatinine 0.70 mg/dL (0.55-1.02) 05/26/24 12:26 Glucose 85 mg/dL (74-106) 05/26/24 12:26 TSH 0.437 uIU/mL (0.358-3.740) 05/26/24 12:26 COAG Pre-Assessment Diagnosis/Proposed Procedure Planned Operative Procedure(s): RIGHT MASTECTOMY WITH SENTINELLYMPH NODE BIOPSY BLUE DYE AND RADIOTRACER POSS AXILLARY DISSECTION Anesthesia History 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 When Was Last Pacemaker Check QUESTION #4 FULL TEXT: You/Your Family Experience fever (hyperthermia) with Anesthesia Last Oral Intake Last Oral intake: Last Oral Intake NPO since 07:30 06/01/24 11:31 Meds taken in AM with sips of Yes 06/01/24 11:31 water? Meds patient instructed to ATENOLOL,LEVOTHYROXINE, 06/01/24 11:31 take am of surgery WELLBUTRIN,INHALERS PONV PONV - jewel hole finish opener: PONV - jewel hole finish opener Female Yes 05/24/24 09:09 HX of Motion Sickness No 05/24/24 09:09 HX of N/V After Surgery No 05/24/24 09:09 Non-Smoker Yes 05/24/24 09:09 Duration of Surgery greater Yes 05/24/24 09:09 than 60 minutes Number of Risk Factors 3 05/24/24 09:09 PONV Score Moderate Risk 05/24/24 09:09 Height & Weight Height & Weight: Anesthesia: Height & Weight Height 5 ft 3 in 06/01/24 11:31 Weight: 89 kg 06/01/24 11:31 Body Mass Index (BMI) 34.7 06/01/24 11:31 Respiratory Assessment Respiratory Assessment - jewel hole finish opener: Respiratory Tract Infection Hx - jewel hole finish opener Hx Respiratory Tract Infection Yes: THROAT CONGESTION/ON 05/24/24 09:09 ANTIBIOTIC/IMPROVING STOP Sleep Apnea STOP Sleep Apnea - jewel hole finish opener: STOP Sleep Apnea - jewel hole finish opener Hx Hypertension No 05/24/24 09:09 Hx Sleep Apnea Yes 05/24/24 09:09 CPAP No 05/24/24 09:09 BIPAP Yes: NONCOMPLIANT 05/24/24 09:09 Do you snore loudly (louder than talking or can be heard Do you often feel tired/ fatigued/ sleepy during daytime? Has anyone observed you stop breathing during sleep? STOP Results Positive 05/24/24 09:09 QUESTION #5 FULL TEXT : Do you snore loudly (louder than talking or can be heard through closed doors)? 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 Specify any problems Hx of Preganancy in last 3 No 05/24/24 09:09 Months Nurse Filling Out Transfusion DSCHRIBER 05/24/24 09:09 & Questions: Date: 05/24/24 05/24/24 09:09 Time: 09:12 05/24/24 09:09 Patient unable to answer at this time (ie. confused, unrespo /Reproduction History /Reproductive History - jewel hole finish opener: /Reproductive Hx- jewel hole finish opener Hx Now No 05/24/24 09:09 Gestational Age (in weeks): EDC: Hx Hx Para Hx Section SAB No 05/24/24 09:09 Active Medications Active Medications: Current Medications Generic Name Dose Route Start Last Admin Trade Name Freq PRN Reason Stop Dose Admin Clindamycin Phosphate 900 mg in 50 mls @ 75 mls/hr 06/01/24 12:30 Cleocin IV 06/01/24 13:09 PREOP ONE Sodium Chloride 1,000 mls @ 15 mls/hr 06/01/24 11:05 06/01/24 11:35 IV 06/07/24 00:24 15 mls/hr .Q48H FRANCOISE Administration Protocol PFSH Medical History Wears glasses Post-menopausal Cancer Depression Anxiety Marijuana use Hypoglycemia Thyroid disease Arthritis High cholesterol Scoliosis Narcolepsy Injury of head and neck History of IBS Heartburn Non-smoker BiPAP (biphasic positive airway pressure) dependence COPD (chronic obstructive pulmonary disease) Asthma History of pain when walking History of echocardiogram History of stress test History of irregular heartbeat Hx of sepsis Abnormal ultrasound of breast Abnormal mammogram Lump of right breast Home Medications ?Medication ?Instructions ?Recorded ?Last Taken ?Type atenolol 50 mg tablet 50 mg PO QDAY 04/05/24 06/01/24 History bupropion HCl 300 mg 24 hr tablet, 300 mg PO QDAY 04/05/24 06/01/24 History extended release fluticasone furoate 100 1 inh inhalation QDAY 04/05/24 06/01/24 History mcg/actuation blister powder for inhalation (Arnuity Ellipta) gabapentin 300 mg capsule 300 mg PO TID PRN pain 04/05/24 05/31/24 History levothyroxine 112 mcg tablet 112 mcg PO QDAY 04/05/24 06/01/24 History modafinil 200 mg tablet 200 mg PO QDAY 04/05/24 05/31/24 History salmeterol 50 mcg/dose blister 1 inh inhalation BID 04/21/24 05/31/24 History powder for inhalation (Serevent Diskus) THC 10 mg PO DAILY 05/24/24 Unknown History fluticasone propionate 50 1 spray intranasal DAILY PRN nasal 05/24/24 06/01/24 History mcg/actuation nasal congestion spray,suspension levalbuterol HCl 1.25 mg/0.5 mL 1.25 mg inhalation Q4H PRN 05/24/24 06/01/24 History solution for nebulization shortness of breath or wheezing levalbuterol tartrate 45 1 inh inhalation Q4H PRN shortness 05/24/24 06/01/24 History mcg/actuation aerosol inhaler of breath or wheezing Allergy/AdvReac Type Severity Reaction Status Date / Time Cephalosporins Allergy Severe Rash Verified 06/01/24 11:22 Penicillins Allergy Severe Anaphylaxis Verified 06/01/24 11:22 pseudoephedrine Allergy Mild Laryngospas Verified 06/01/24 11:22 ms Family History Grandmother Breast cancer Sister Breast cancer Surgical History (Updated 05/24/24 @ 09:22 by Cris Cano) History of ERCP Hx of colonoscopy History of esophagogastroduodenoscopy (EGD) Hx of tonsillectomy Hx of tubal ligation History of cholecystectomy Social History Smoking Status: Never smoker alcohol intake: never substance use type: does not use Review of Systems (Anesthesia) ROS Narrative System reviewed and no additional complaints, except as documented.
[2024-06-01] MEDS: Clindamycin 900 MG/50 ML BAG 75 MG IV (12:47)
[2024-06-01] MEDS: Bupiv/Epi 0.25% 30 ML Vial (13:50)
--- NOTE | 2024-06-01 15:36 | PCM.OPRPT ---
Oncology: Toney Requirements . Oncology surgical intervention performed: Axillary Lymph Node Dissection for Breast Cancer performed Axillary Lymph - Breast Cancer: Synoptic Portion: Element Response Options Operation performed with curative intent. Yes Resection was performed within the boundaries of the axillary vein, chest wall (serratus anterior), and latissimus dorsi. Yes Nerves identified and preserved during dissection (select all that apply) Long thoracic nerve & Thoracodorsal nerve-preserved; ----Branches of the intercostobrachial nerves-unable to be preserved Level III nodes were removed. No. Operative Report (Standard) Operative Information Date of Procedure: 06/01/24 Pre-Operative Diagnosis: Right breast cancer Post-Operative Diagnosis: Right breast cancer, regional right axillary lymph node involvement Surgery/Procedure Performed: Right mastectomy, right sentinel lymph node biopsy converted to right axillary lymph node dissection, injection of nuclear tracer and blue dye lymphovenous anastomosis by Dr. Fuentes solar resource assessor: Yes Field Reviewer: Mansoor Clarke Tasks completed by tourist information assistant: Opening & closing and Retracting Type of Anesthesia: General/Supplemental RN Documented Start/Stop Times: Operation Date: 06/01/24 12:30 Case Time Into Pre-Op 06/01/24 11:01 Out of Pre-Op 06/01/24 12:25 Anesthesia Start 06/01/24 12:29 Into Room 06/01/24 12:29 Procedure Start 06/01/24 13:08 Procedure End 06/01/24 17:50 Anesthesia End 06/01/24 17:53 Out of Room 06/01/24 17:53 Into Recovery 06/01/24 17:55 Into Phase II Recovery 06/01/24 19:15 Out of Recovery 06/01/24 19:15 Out of Phase II 06/01/24 19:47 Procedure Start Time: 13:08 Procedure Stop Time: 17:50 Select all DRAINS/GRAFTS/IMPLANTS that apply: Drains Drain details: 2-- 15 Fr round HELADIO Special Medications: Clindamycin 900 mg IV x 1 Estimated Blood Loss: 40 cc Specimen collected: Yes Description of specimen(s) removed: 1. right sentinel LN, 2. right mastectomy, 3. right axillary LN, 4. right axillary contents Description of surgery: In radiology the breast tissue was injected with Lymphoseek. 30 minutes later the patient was taken to the operating room and general anesthesia was induced. 5 cc of methylene blue blue dye was injected in the 4 quadrants periareolar along with 10 cc of normal saline. This was massaged gently for 5 minutes. The right breast and axilla were prepped and draped in usual sterile fashion. A timeout was completed verifying correct patient, procedure, site, positioning, special equipment prior to beginning procedure. Handheld gamma probe was used to identify the location of the hottest spot in the axilla. Prior to the incision, the counts were 11. The incision was made and the palpable node was identified. The probe was placed in contact with the node in the 10 count was 0. The bed of the node measured 20 counts. No blue or hot nodes were detected. No area of sentinel lymph node tissue was sent off the head of 10 count of 246. However only 1 lymph node was found on frozen which was positive. Plan to convert to axillary lymph node dissection due to nontracing of tracers. Skin incision was made that encompassed the nipple areolar complex and the previous biopsy scar in past and generally oblique direction across the breast. Flaps are raised in the avascular plane between the prescription he continues tissues in the breast tissue from the clavicle superiorly, the sternum medially, the anterior rectus sheath inferiorly, and posterolateral border of the pectoralis major muscle laterally. Hemostasis was achieved in the flaps. Next, the breast tissue and underlying pectoralis fascia were excised from the pectoralis major muscle, progressing from medial to laterally. At the lateral border of the pectoralis major muscle, the breast tissue was swung laterally and the lateral pedicle identified with the breast tissue gave way to the fat of the axilla. The lateral pedicle was incised and the specimen removed and oriented for pathology. The wound was irrigated and hemostasis was achieved. The borders of the axillary vein, latissimus dorsi, serratus anterior are identified. There is grossly positive disease in the axilla with hard firm nodules. The intercostobrachial did coursed through this area and was not able to be preserved?ligated after was clipped. The long thoracic and thoracodorsal nerves are also identified and protected throughout the dissection. All the nodes within these borders along with the positive lymph node are removed and sent to pathology. The specimen was oriented. The cavities were irrigated. Hemostasis was checked. Please see Dr. Fuentes's operative report of the lymphovenous anastomosis. Closed suction drains were brought into the operating field through a separate stab incision and sutured to skin with 3-0 nylon suture. The incision was closed with interrupted 2-0 Vicryl to the simultaneously followed by a subcuticular layer of 4-0 Monocryl and Steri-Strips. The wound was dressed and Baljit wrap placed. The patient tolerated procedure well was taken to the postanesthesia care in stable condition. Surgical Findings: Frozen 2 out of 2 lymph nodes positive from the axilla, none trace in a blue dye or Lymphoseek, grossly positive disease and axilla Complications Complications: No
[2024-06-01] MEDS: Isosulfan Blue 1% 5 ML Vial (15:39)
[2024-06-01] MEDS: Lidocaine 2% (20 ml mdv) 20 ML Vial (16:24)
--- NOTE | 2024-06-01 17:56 | PCM.POST.ANE ---
Anesthesia: Postop Eval I Current Vital Signs Temperature: 97 F Pulse Rate: 68 Blood Pressure: 121/67 Respiratory Rate: 20 Pulse Ox: 100 Assessment Airway patent: Yes Spontaneous unlabored respirations: Yes nausea: No Vomiting: No Anesthesia Complication: No Fluid Hydration Crystalloid volume administer (ml): 1,200 Total IV fluid infused: 1,200 Progress Note Anesthesia document: Postop Eval 1 completed: Yes
--- NOTE | 2024-06-01 19:28 | POSTOPAN2_ITS ---
Anesthesia Postop Eval I Sum Postop Eval Completion status Anesthesia document: Postop Eval 1 completed: Yes Anesthesia Postop Eval I Summary Anesthesia Postop Eval I Summary: Anesthesia Postop Eval I: Assessment Summary Airway patent Yes 06/01/24 17:56 [email or web address] Spontaneous unlabored Yes 06/01/24 17:56 [email or web address] [email or web address] respirations Mental status nausea No 06/01/24 17:56 [email or web address] [email or web address] Vomiting No 06/01/24 17:56 [email or web address] [email or web address] Anesthesia Postop Eval I: Fluid Summary Crystalloid volume administer 1,200 06/01/24 17:56 [email or web address] [email or web address] (ml) Colloids volume administered ( ml) Blood Product volume administered (ml) Total IV fluid infused 1,200 06/01/24 17:56 [email or web address] [email or web address] Anesthesia Postop Eval I: Summary Notes Anesthesia Complication No 06/01/24 17:56 [email or web address] [email or web address].CSIR Anesthesia Complication Comment: Post-operative progress note Anesthesia: Postop Eval II Evaluation Mental status: Awake Pain Level: 0 nausea: No Vomiting: No Complications Anesthesia Complication: No
--- NOTE | 2024-06-01 19:28 | PCM.POSTANE2 ---
Anesthesia Postop Eval I Sum Postop Eval Completion status Anesthesia document: Postop Eval 1 completed: Yes Anesthesia Postop Eval I Summary Anesthesia Postop Eval I Summary: Anesthesia Postop Eval I: Assessment Summary Airway patent Yes 06/01/24 17:56 HULL LINE CREW [email or web address] Spontaneous unlabored Yes 06/01/24 17:56 HULL LINE CREW [email or web address].CSIR respirations Mental status nausea No 06/01/24 17:56 HULL LINE CREW MEMBER.CSIR Vomiting No 06/01/24 17:56 HULL LINE CREW [email or web address].CSIR Anesthesia Postop Eval I: Fluid Summary Crystalloid volume administer 1,200 06/01/24 17:56 HULL LINE CREW [email or web address].CSIR (ml) Colloids volume administered ( ml) Blood Product volume administered (ml) Total IV fluid infused 1,200 06/01/24 17:56 HULL LINE CREW [email or web address].CSIR Anesthesia Postop Eval I: Summary Notes Anesthesia Complication No 06/01/24 17:56 HULL LINE CREW MEMBER.CSIR Anesthesia Complication Comment: Post-operative progress note Anesthesia: Postop Eval II Evaluation Mental status: Awake Pain Level: 0 nausea: No Vomiting: No Complications Anesthesia Complication: No
[2024-06-01] MEDS: oxyCODONE 5 MG Tablet PO (20:31)
[2024-06-01] MEDS: Ondansetron 4 MG/2 ML Vial IV (20:33)
[2024-06-02] MEDS: oxyCODONE 5 MG Tablet PO ×2 (00:42→06:22)
[2024-06-02 03:26] VITALS: BP 107/58; PULSE 70; RESP 16; TEMP 36.6; O2SAT 98
[2024-06-02] MEDS: Levothyroxine 112 MCG Tablet PO (05:30)
[2024-06-02] MEDS: Gabapentin 300 MG Capsule PO (06:22)
[2024-06-02 06:55] VITALS: PULSE 66; RESP 18
[2024-06-02] MEDS: Budesonide Respules 0.5 MG/2 ML AMPUL.NEB. INHALATION (06:55)
[2024-06-02] MEDS: Albuterol 2.5 MG/3 ML VIAL.NEB. INHALATION (06:55)
[2024-06-02 07:24] LABS: Absolute Lymphocyte Count 1.65 X10^3/uL (0.83-4.51); Absolute Neutrophil Count 7.8 X10^3/uL (2.0-7.7); Basophil# 0.01 X10^3/uL; Basophil% 0.1 % (0-1); Hematocrit 35.4 % (37-47); Hemoglobin 12.2 g/dL (12.0-15.0); Lymphocyte # 1.65 X10^3/ul (0.83-4.51); Lymphocyte % 16.2 % (19-41); Mean Corp Hgb Conc 34.5 g/dL (32-36); Mean Corpuscular Hgb 33.2 pg (27.0-32.0); Mean Corpuscular Volume 96.2 fL (81-99); Mean Platelet Vol. 10.2 fl (6.2-12.0); Monocyte# 0.67 X10^3/uL; Monocyte% 6.6 % (0-10); NRBC Flagged by Analyzer 0 % (0-5); Neutrophil # 7.81 X10^3/uL (2.7-7.7); Neutrophil % 76.5 % (47-70); Platelet Count 184 K/mm3 (150-450); RBC Distribution Width CV 12.9 % (11.6-14.6); RBC Distribution Width SD 45.9 fl (35.1-43.9); Red Blood Count 3.68 M/mm3 (4.2-5.4); White Blood Count 10.2 K/mm3 (4.4-11.0)
--- NOTE | 2024-06-02 07:38 | PCM.OPRPT ---
Operative Report (Standard) Operative Information Date of Procedure: 06/01/24 Pre-Operative Diagnosis: 1) Right invasive ductal carcinoma requiring mastectomy with axillary lymph node dissection for grossly positive nodes Post-Operative Diagnosis: Same Surgery/Procedure Performed: 1) Lymphovenous anastomosis (1 mm end-to-end), right axilla, for immediate lymphatic reconstruction following axillary dissection (CPT 94575, repair of upper extremity blood vessel) corner bead operator: Yes Top Lift Scourer: Mansoor Clarke Tasks completed by certified surgical first assistant: Retracting Type of Anesthesia: General RN Documented Start/Stop Times: Operation Date: 06/01/24 12:30 Case Time Into Pre-Op 06/01/24 11:01 Out of Pre-Op 06/01/24 12:25 Anesthesia Start 06/01/24 12:29 Into Room 06/01/24 12:29 Procedure Start 06/01/24 13:08 Procedure End 06/01/24 17:50 Anesthesia End 06/01/24 17:53 Out of Room 06/01/24 17:53 Into Recovery 06/01/24 17:55 Into Phase II Recovery 06/01/24 19:15 Out of Recovery 06/01/24 19:15 Out of Phase II 06/01/24 19:47 Procedure Start Time: 15:10 Procedure Stop Time: 17:50 Select all DRAINS/GRAFTS/IMPLANTS that apply: Drains (two drains ) Drain details: 15 Fr Channel drains x 2 Estimated Blood Loss: Minimal Specimen collected: No Description of surgery: Indications: Sadie Nguyễn is a 73-year-old female who on the date of surgery underwent right mastectomy with lymph node sampling and unfortunately had grossly positive nodes in her right axilla. A full axillary lymph node dissection of levels 1 and 2 was completed by the general surgery service. Plastic surgery was called into the room for immediate lymphatic reconstruction. Preoperatively I talked to the patient about the risks, benefits, and alternatives to this procedure, and they agreed to proceed if indicated. Procedure details: Patient was already prepped and draped in sterile fashion when plastic surgery was called in the room. The mastectomy and axillary dissection had been completed. Please see the separate operative note for details regarding this portion of the procedure. I performed a timeout for plastic surgery's portion. I began the procedure by performing hemostasis in the right axilla with Bovie electrocautery and irrigating. I injected a small amount of Lymphazurin intradermally along the medial right arm in the style of reverse axillary mapping. I massaged the right arm carefully so as to promote uptake of the Lymphazurin into the right axilla. There were 2 lymphatics identified using the blue Lymphazurin as it flowed into the axilla. These pathways had been transected during the axillary dissection. The distal edges were then clipped with super micro clips so as to balloon the lymphatic vessels and dilate them. Careful dissection was then performed to find adjacent veins for lymphovenous anastomoses, preferably connected to the chest. A small distal branch of the vein connected to the thoracodorsal system was identified adjacent to one of the larger lymphatic vessels, and was therefore carefully dissected with a nerve dissector using the microscope. The distal portion of the vein was transected and transposed across the micro background adjacent to the lymphatic vessel and good size match was confirmed (both vessels were 1 mm). The clip was removed and the vessels were anastomosed end-to-end using 11-0 nylon. Confirmation of patency was then assessed by milking blood from the vein through the anastomosis into the lymphatic vessel, and then milking blue dye from the lymphatic vessel into the vein. The other lymphatic vessel was approximately 0.2 millimeter in diameter. There were no adjacent venous options either. Therefore attempted reconstruction at this location was deferred. To further assess lymphatic flow, 1/10 of a cc intradermal injection with 0.25% ICG was performed in the area of the previous Lymphazurin injection. Using the spy machine, the ICG uptake was seen in the axilla behind the lymphatic venous anastomosis that we had performed (suggesting that there were also intact pathways following the axillary dissection in addition to the new anastomosis). 2 cc of Tisseel was then applied carefully over our anastomoses to protect from shear forces. All foreign material including backgrounds, clips, and Ray-Carmencita sponges were removed from the right axilla and counts were correct. 2 channel drains were placed, 1 tunneled towards the right axilla but away from the anastomosis, and the other across the mastectomy flaps. The mastectomy flaps were then closed with 2-0 Vicryl deep dermal suture followed by running 3-0 Monocryl deep dermal suture followed by Steri-Strips. The patient's right upper extremity was wrapped with compression Baljit wrap from the hand to the right upper arm. Postoperative plan: Compression for 1 month. No extremes of arm/shoulder movement (no abduction greater than 30 degrees, and no flexion or extension greater than 30 degrees). Follow-up in 1 week with plastics. Surgical Findings: One relatively large lymphatic vessel that had been transected that was repaired to an adjacent vein in the right axilla for lymphovenous anastomoses of 1 mm end-to-end. Complications Complications: No Admit VTE Documentation VTE Present on Admission: No VTE Mechan Device Prophylaxis: SCD's
--- NOTE | 2024-06-02 08:01 | PCM.PN.SRG ---
Subjective Subjective Patient's right axillary pain is improved from yesterday still needing pain meds. Objective Data Objective Data Vital Signs: Vital Signs Temp Pulse Resp BP Pulse Ox O2 Del Method 97.8 F 66 18 107/58 L 98 Room Air 06/02/24 03:26 06/02/24 06:55 06/02/24 06:55 06/02/24 03:26 06/02/24 03:26 06/02/24 03:26 Oxygen Delivery Method Room Air Weight: 196 lb 3.382 oz Body Mass Index (BMI) 34.7 Intake & Output: Intake and Output for Last 24 Hours 05/31/24 06/01/24 06/02/24 23:59 23:59 23:59 Intake Total 1050 / 1050 Output Total 585 / 685 565 / 565 Balance 465 / 365 -565 / -565 Lab / Micro Data 06/02/24 05:09 05/26/24 12:26 Labs: Laboratory Results - last 24 hr 06/02/24 05:09: WBC 10.2, RBC 3.68 L, Hgb 12.2, Hct 35.4 L, MCV 96.2, MCH 33.2 H, MCHC 34.5, RDW Std Deviation 45.9 H, RDW Coeff of Ty 12.9, Plt Count 184, MPV 10.2, Immature Gran % (Auto) 0.600, Neut % (Auto) 76.5 H, Lymph % (Auto) 16.2 L, Sac % (Auto) 6.6, Eos % (Auto) 0.0, Baso % (Auto) 0.1, Absolute Neuts (auto) 7.8 H, Absolute Lymphs (auto) 1.65, Nucleated RBC % 0 Radiography Diagnostic Testing: Radiology Impression [place] Node 06/01/24 11:02 IMPRESSION: 604 uCi of Lymphoseek was injected subcutaneously in the right supra areolar region. [facility] Narrative Right mastectomy incision healing well clean dry and intact with stereos ABDs and Baljit wrap Const oriented x3 and no apparent distress Resp normal respiratory effort Cardio regular rate Extremity Extremity Narrative: Right upper extremity with Baljit wrap Assessment & Plan Assessment/Plan (1) S/P right mastectomy: (2) Regional lymph node metastasis present: (3) History of lymph node dissection of right axilla: PLAN: Plan Patient is tolerating diet, pain controlled, HELADIO sanguinous x 2. Will DC home. Patient is to keep chest Baljit wrap as well as right upper extremity Baljit wrap in place. Patient will follow-up on Thursday for HELADIO drain removal. Also follow-up with Dr. Fuentes call office for appointment. Patient was agreeable with plan. Ericka العلي M.D. Pager: [phone] [facility] [address] [place] [address], [address] [place] [address] Office: [phone]
--- NOTE | 2024-06-02 08:18 | DCINST_ITS ---
Discharge Instructions Procedure Breast Surgery Diet Discharge Diet: No restrictions Activity Discharge Activity: May Not Drive (while taking narcotic pain meds.) and May Not Shower (w drains--ok for lower shower) May shower in (days): 1 Lifting Restrictions: 10 lbs for 2 wks on rt, no elevating >30 degrees to side/front/back x 1 mon Dressing / Incision Call your doctor if your incision/area has: Continuous Slow Oozing, Sudden Increased Bleeding, Increased Pain/ Swelling and Increased Redness Call your doctor if you observe: Fever of 101 or Higher Suture Line Care: Avoid Pulling/Pushing Remove Dressing in: 1 day (bulky dressing--change and replace ABD pads/ NONA Wrap) Additional Dressing/Incision Instructions:: ok to change dressing tomorrow. ok to remove NONA Wrap for redressing but replace NONA wrap after, right arm NONA per Dr. Fuentes-keep in place-ok to change Thursday but replace Follow Up Care Please Follow Up With: Ericka العلي MD When: Please call [phone] for an appointment to be seen thursday for HELADIO removal--bring log to appt Test Results: Test results from this visit will be discussed in further detail at your follow- up appointment, if applicable. Discharge Plan Admission Attending Provider: Ericka العلي Primary Care Provider: Ellen Tsai Instructions Print Language: Citizen Of [place] Discharge Orders/Prescriptions Prescriptions: New oxycodone 5 mg capsule 5 mg PO Q6H PRN (Reason: pain) 3 Days Qty: 14 0RF Continued bupropion HCl 300 mg tablet extended release 24 hr 300 mg PO QDAY Arnuity Ellipta 100 mcg/actuation blister with device 1 inh inhalation QDAY modafinil 200 mg tablet 200 mg PO QDAY levothyroxine 112 mcg tablet 112 mcg PO QDAY gabapentin 300 mg capsule 300 mg PO TID PRN (Reason: pain) atenolol 50 mg tablet 50 mg PO QDAY Serevent Diskus 50 mcg/dose blister with device 1 inh inhalation BID levalbuterol HCl 1.25 mg/0.5 mL solution for nebulization 1.25 mg inhalation Q4H PRN (Reason: shortness of breath or wheezing) Rx Instructions: must dilute for administration levalbuterol tartrate 45 mcg/actuation HFA aerosol inhaler 1 inh inhalation Q4H PRN (Reason: shortness of breath or wheezing) THC 10 mg PO DAILY fluticasone propionate 50 mcg/actuation spray,suspension 1 spray intranasal DAILY PRN (Reason: nasal congestion) Rx Instructions: administer into each nostril Referrals / Follow Up: Christian Fuentes MD [Med Staff - Active Staff] - (call for f/u appt) Ellen Tsai PA [Primary Care Provider] - Disposition Disposition (needs filled in before D/C Order can be placed): Home, Self Care
[2024-06-02 08:37] VITALS: BP 134/66; PULSE 69; RESP 16; TEMP 36.7; O2SAT 100
--- NOTE | 2024-06-02 09:54 | PN.SURG_ITS ---
Subjective Subjective Doing well. Updated patient on the LVA and plan going forward. Objective Data Objective Data Vital Signs: Vital Signs Temp Pulse Resp BP Pulse Ox O2 Del Method 98.1 F 69 16 134/66 H 100 Room Air 06/02/24 08:37 06/02/24 08:37 06/02/24 08:37 06/02/24 08:37 06/02/24 08:37 06/02/24 08:37 Oxygen Delivery Method Room Air Weight: 196 lb 3.382 oz Body Mass Index (BMI) 34.7 Intake & Output: Intake and Output for Last 24 Hours 05/31/24 06/01/24 06/02/24 23:59 23:59 23:59 Intake Total 1050 / 1050 Output Total 585 / 685 565 / 565 Balance 465 / 365 -565 / -565 Lab / Micro Data 06/02/24 05:09 05/26/24 12:26 Labs: Laboratory Results - last 24 hr 06/02/24 05:09: WBC 10.2, RBC 3.68 L, Hgb 12.2, Hct 35.4 L, MCV 96.2, MCH 33.2 H , MCHC 34.5, RDW Std Deviation 45.9 H, RDW Coeff of Ty 12.9, Plt Count 184, MPV 10.2, Immature Gran % (Auto) 0.600, Neut % (Auto) 76.5 H, Lymph % (Auto) 16.2 L, [place] % (Auto) 6.6, Eos % (Auto) 0.0, Baso % (Auto) 0.1, Absolute Neuts (auto) 7.8 H, Absolute Lymphs (auto) 1.65, Nucleated RBC % 0 Radiography Diagnostic Testing: Radiology Impression [place] Node 06/01/24 11:02 IMPRESSION: 604 uCi of Lymphoseek was injected subcutaneously in the right supra areolar region. [facility] Narrative Right mastectomy incision healing well clean dry and intact with stereos ABDs and Nona wrap No hematoma. Drains SS. RUE: Wrapped in NONA. Fingers warm and well perfused. Const oriented x3 and no apparent distress Resp normal respiratory effort Cardio regular rate Extremity Extremity Narrative: SCDS on and activated Assessment & Plan Assessment/Plan (1) S/P right mastectomy: PLAN: Discussed positioning restrictions and plan for 1 month of NONA compression as tolerated. F/u in 1 week with me Charges/Coding Procedures Integumentary [id number]: [id number] Global Visit
--- NOTE | 2024-06-02 09:58 | CASEMGMT ---
ART CM into pt room, pt dressed sitting on eob and ready for dc. Pt states she feels comfortable with drain care. Pt present in room and is able to assist. Pt denies any homegoing needs.
== END 2024-06-02 10:07 | disposition home or self-care (01) ==
LOC: SDC 06-03 09:52 → MS3 06-03 09:52
PROVIDERS: Anesthesiology; Surgery Plastic and Reconstructive Surgery; Admitting Provider Surgery; PCP Physician Assistant; Referring Provider Surgery; Visit Provider Surgery
PROC: (CPT 19307; principal; 2024-06-01 12:00)
PROC: (CPT 38999; 2024-06-01 12:00)
DX: C50.911 Malignant neoplasm of unspecified site of right female breast (principal); C77.3 Secondary and unspecified malignant neoplasm of axilla and upper limb lymph nodes; J44.89 Other specified chronic obstructive pulmonary disease; E78.00 Pure hypercholesterolemia, unspecified; Z79.890 Hormone replacement therapy; Z79.51 Long term (current) use of inhaled steroids; Z17.0 Estrogen receptor positive status [ER+]; Z86.16 Personal history of COVID-19; E07.9 Disorder of thyroid, unspecified; Z79.899 Other long term (current) drug therapy
CPT/HCPCS: 19303; 38525; 38900; 00400; 35206; 36415; 38792; 75801; 80048; 84443; 85025; 85027; 88305; 88307; 88331; 88332; 93005; 94640; 94668; 96374; 99221; A4648; A9520; A4216; G0378; J2405; Q9968

== ENCOUNTER → 2024-06-21 | Outpatient (CLI) | payer MEDICARE, OTHER, SELFPAY ==
--- NOTE | 2024-06-21 09:30 | PET_ITS ---
EXAM: PET-CT. CLINICAL HISTORY: 73-year-old female with a history of invasive ductal carcinoma of the right breast, status post mastectomy and axillary lymph node dissection. For initial staging. COMPARISON: None available. TECHNIQUE: Following a fast, 10.68 mCi F-18 FDG was administered intravenously. PET images were obtained from the skull base through the mid thighs. Through this same anatomic region, CT images were obtained for attenuation correction purposes and anatomic localization. Blood glucose level at the time of FDG administration was 77 mg/dL. Dose reduction techniques include automated exposure control and/or adjustment of mA and/or kv according to patient size and or use of iterative reconstructive technique. FINDINGS: Neck: No abnormal FDG activity in the neck. There is physiologic activity in the larynx. The lymph nodes are normal in size. The mucosal surfaces are symmetric. Airway is normal. Chest: Mild FDG activity (max SUV 1.8) associated with the right mastectomy wound. No additional abnormal FDG activity in the chest. A seroma along the medial aspect of the wound measures 5.5 x 2.1 cm. Surgical clips are noted in the right axilla. Lymph nodes in the chest are normal in size. Heart size is enlarged. The aorta is normal. There is dependent bibasilar atelectasis. Lungs are otherwise clear. Central airways are patent. Abdomen and pelvis: No abnormal FDG activity in the abdomen or pelvis. Mild pneumobilia post cholecystectomy. The liver, spleen, pancreas are normal. Adrenal glands, kidneys, ureters, urinary bladder are normal. A moderate amount of stool is seen throughout the colon. Aorta and iliac arteries are atherosclerotic. Lymph nodes are normal in size. No suspicious sclerotic, lytic, or FDG avid lesion is seen in the skeleton. PET/PET/CT Tumor Base -Thigh Init IMPRESSION: NO PET EVIDENCE FOR RESIDUAL OR METASTATIC DISEASE. Reading Location: [id number]
== END | disposition home or self-care (01) ==
PROVIDERS: PCP Physician Assistant; Referring Provider Internal Medicine Hematology & Oncology; Visit Provider Internal Medicine Hematology & Oncology
DX: C50.411 Malignant neoplasm of upper-outer quadrant of right female breast (principal); Z17.0 Estrogen receptor positive status [ER+]
CPT/HCPCS: 78815; A9552